=== PATIENT | male | born 1965 | race Caucasian/White ===

== ENCOUNTER 2024-03-21 19:16 | Outpatient (REF) | payer BC, SELFPAY ==
[2024-03-21 22:24] LABS: COMMENT (LAB VIEW ONLY) 151.62 mg/dL
== END 2024-03-21 19:17 | disposition home or self-care (01) ==
LOC: NCHCN 19:16
PROVIDERS: Visit Provider Family Medicine
DX: E11.9 Type 2 diabetes mellitus without complications (principal)
CPT/HCPCS: 82043; 82570

== ENCOUNTER 2025-07-11 09:32 | Outpatient (REF) | payer BC, SELFPAY ==
[2025-07-11 15:28] LABS: ALT 68 U/L (10-49); AST 54 U/L (<34); Albumin 4.9 g/dL (3.4-5.0); Alkaline Phosphatase 95 U/L (46-116); Anion Gap 13.5 mmol/L (3-11); BUN 23 mg/dL (9-23); Bilirubin, Total 0.40 mg/dL (0.2-1.2); CO2 21.5 mmol/L (20.0-31.0); Calcium 10.6 mg/dL (8.3-10.6); Chloride 102 mmol/L (98-107); Cholesterol 212 mg/dL (<200); Glucose 141 mg/dL (74-106); HDL Cholesterol 67 mg/dL (>40); Potassium 4.6 mmol/L (3.5-5.1); Sodium 137 mmol/L (136-145); Total Protein 8.1 g/dL (5.7-8.2)
[2025-07-11 22:48] LABS: PSA, Screening 0.7 ng/mL (<=4.5)
== END 2025-07-11 09:33 | disposition home or self-care (01) ==
LOC: NCHCN 09:32
PROVIDERS: PCP Family Medicine; Visit Provider Family Medicine
DX: E11.9 Type 2 diabetes mellitus without complications (principal); Z12.5 Encounter for screening for malignant neoplasm of prostate; E78.5 Hyperlipidemia, unspecified
CPT/HCPCS: 80053; 80061; 84153